=== PATIENT | male | born 1965 | race African-American/Black ===

== ENCOUNTER 2022-10-13 04:08 | Emergency (ER) | payer MEDICARE ==
[2022-10-13] MEDS ORDERED: Ibuprofen 200 MG TAB ONE (05:40)
== END 2022-10-13 05:39 | disposition home or self-care (01) ==
LOC: CSHERS 04:08
DX: M72.2 Plantar fascial fibromatosis (principal); E78.5 Hyperlipidemia, unspecified; I10 Essential (primary) hypertension
CPT/HCPCS: 99283